=== PATIENT | male | born 1990 | race African-American/Black ===

== ENCOUNTER 2019-02-01 07:42 | Emergency (ER) | payer SELFPAY ==
[~2019-02-01] VITALS: Ht 170.2 cm; Wt 68.0 kg
[2019-02-01 07:46] VITALS: BP 133/94
[2019-02-01] MEDS ORDERED: NYST100054 PO (07:58)
[2019-02-01] MEDS ORDERED: VENTOLIN HFA18 GM INH (07:58)
--- NOTE | 2019-02-01 08:00 | PHYS DOC ---
Past Medical History Past Medical History: Asthma, HIV Alcohol Use: None Drug Use: Marijuana Adult General Chief Complaint Chief Complaint: SHORTNESS OF BREATH HPI HPI 28-year-old male presents to emergency Department complaints of shortness of breath. Patient has a history of asthma, HIV. States she's not been on treatment for about 3 years, his initial diagnosis was in 2010. Patient states he woke up feeling short of breath, states he felt somewhat anxious as well. Saturations of 97% on room air, heart rate within normal limits, blood pressure 133/94. Patient is well describes in his mouth. He states his rales inhaler for number months as well. Patient denies any recent hospitalizations. Review of Systems Review of Systems Constitutional: Denies fever or chills [] Eyes: Denies change in visual acuity, redness, or eye pain [] HENT: Denies nasal congestion or sore throat, + thrush[] Respiratory: shortness of breath [] Cardiovascular: No additional information not addressed in HPI [] GI: Denies abdominal pain, nausea, vomiting, bloody stools or diarrhea [] Musculoskeletal: Denies back pain or joint pain [] Neurologic: Denies headache, focal weakness or sensory changes [] All other systems were reviewed and found to be within normal limits, except as documented in this note. Current Medications Current Medications Current Medications Medications (Trade) Dose Ordered Sig/[place] Start Time Stop Time Status Last Admin Dose Admin Albuterol Sulfate (Ventolin Neb Soln) 2.5 mg 1X ONCE 02/01/19 08:30 02/01/19 08:31 DC 02/01/19 08:08 2.5 MG Nystatin (Nystatin Oral Susp) 5 ml ONCE ONCE 02/01/19 08:30 02/01/19 08:31 DC 02/01/19 08:29 5 ML Allergies Allergies Allergies Coded Allergies Type Severity Reaction Last Updated Verified No Known Drug Allergies 02/01/19 No Physical Exam Physical Exam Constitutional: Well developed, well nourished, no acute distress, non-toxic appearance. [] HENT: Normocephalic, atraumatic, bilateral external ears normal, oropharynx moist, + chelosis, + thrush, nose normal. [] Eyes: PERRLA, EOMI, conjunctiva normal, no discharge. [] Cardiovascular:Heart rate regular rhythm, no murmur [] Lungs & Thorax: Bilateral breath sounds clear to auscultation [] Abdomen: Bowel sounds normal, soft, no tenderness, no masses, no pulsatile masses. [] Skin: Warm, dry, no erythema, no rash. [] Extremities: No tenderness, no cyanosis, no clubbing, ROM intact, no edema. [] Neurologic: Alert and oriented X 3, no focal deficits noted. [] Psychologic: Affect normal, judgement normal, mood normal. [] Current Patient Data Vital Signs Vital Signs Date Time Temp Pulse Resp B/P (MAP) Pulse Ox O2 Delivery O2 Flow Rate FiO2 02/01/19 08:09 95 02/01/19 07:46 98.1 88 18 133/94 (107) Room Air 98.1 EKG EKG [] Radiology/Procedures Radiology/Procedures [] Course & Med Decision Making Course & Med Decision Making Pertinent Labs and Imaging studies reviewed. (See chart for details) []28-year-old male presents to emergency Department complaints of shortness of breath. Patient has a history of asthma, HIV. States she's not been on treatment for about 3 years, his initial diagnosis was in 2010. Patient states he woke up feeling short of breath, states he felt somewhat anxious as well. Saturations of 97% on room air, heart rate within normal limits, blood pressure 133/94. Patient is well describes in his mouth. He states his rales inhaler for number months as well. Patient denies any recent hospitalizations. Xray without evidence of acute process Discussed dc with patient Discussed abx for discharge Recommend follow up with [facility] or regarding HIV establishment of care Dragon Disclaimer Dragon Disclaimer This electronic medical record was generated, in whole or in part, using a voice recognition dictation system. Departure Departure Impression: Primary Impression: Dyspnea Additional Impressions: Thrush HIV (human immunodeficiency virus infection) Disposition: HOME, SELF-CARE Condition: IMPROVED Patient Instructions: Asthma, Adult, [id number], Thrush, Adult, [id number] Scripts Nystatin (NYSTATIN) 100,000 Unit/1 Ml Oral.susp 5 ML PO QID, #200 ML Prov: ANDREEA LEWIS MD 02/01/19 Albuterol Sulfate (VENTOLIN HFA INHALER) 18 Gm Hfa.aer.ad 2 PUFF INH Q4HRS for FOR ASTHMA, #1 INHALER 0 Refills Prov: ANDREEA LEWIS MD 02/01/19 Problem Qualifiers Primary Impression: Dyspnea Dyspnea type: unspecified Qualified Codes: R06.00 - Dyspnea, unspecified Additional Impressions: HIV (human immunodeficiency virus infection) HIV symptom status: symptomatic Qualified Codes: B20 - Human immunodef iciency virus [HIV] disease ANDREEA LEWIS MD Feb 01, 2019 07:59
[2019-02-01] MEDS ORDERED: ALBUTEROL SULFATE 2.5 MG/3 ML NEBU. NEB ONE (08:30)
[2019-02-01] MEDS ORDERED: NYSTATIN 100,000 UNITS/ML 5 ML ORAL.SUSP. SWSW ONE (08:30)
--- NOTE | 2019-02-01 08:37 | RAD ---
CHEST PA LATERAL History: Dyspnea, asthma, HIV positive Comparison: None. Findings: 2 views of the chest are submitted. There is no infiltrate, pneumothorax, or effusion. Pericardial cardiac silhouette is within normal limits in size. Impression: 1. There is no radiographic evidence of acute cardiopulmonary disease. Electronically signed by: Gallito Harris MD (02/01/2019 8:34 AM) [facility]
== END 2019-02-01 09:08 | disposition home or self-care (01) ==
LOC: ER 07:42
DX: R06.02 Shortness of breath (principal); B37.9 Candidiasis, unspecified; J45.909 Unspecified asthma, uncomplicated; Z21 Asymptomatic human immunodeficiency virus [HIV] infection status
CPT/HCPCS: 71046; 94640; 99284; J7613